=== PATIENT | male | born 2000 | race American Indian/Alaskan Native ===

== ENCOUNTER 2019-10-21 12:00 | Emergency (ER) | payer OTHER, BC ==
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
[2019-10-21] MEDS ORDERED: CYCLOBENZAPRINE 10 MG TAB PO ONE (13:49)
[2019-10-21] MEDS ORDERED: IBUPROFEN 800 MG TAB PO ONE (13:49)
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
[2019-10-21 14:32] VITALS: BP 118/70
== END 2019-10-21 14:24 | disposition home or self-care (01) ==
LOC: ED 12:00
DX: S39.012A Strain of muscle, fascia and tendon of lower back, initial encounter (principal); M25.562 Pain in left knee; F17.200 Nicotine dependence, unspecified, uncomplicated; F12.10 Cannabis abuse, uncomplicated; Z79.899 Other long term (current) drug therapy; V49.49XA Driver injured in collision with other motor vehicles in traffic accident, initial encounter; Y93.89 Activity, other specified; Y92.410 Unspecified street and highway as the place of occurrence of the external cause; Y99.8 Other external cause status
CPT/HCPCS: 72070; 72100